=== PATIENT | male | born 1955 | race Caucasian/White ===

== ENCOUNTER 2016-08-31 18:00 | Observation (INO) | payer OTHER ==
[~2016-08-31 18:00] MED LIST: ASPIRIN81 M1 PO; ATIVAN0.5 MG PO; BABY ASPIRIN81 MG; BL MAXEPA CAPSU1 CAP PO; CHANTIX1 MG PO; DEPAKOTE ER500 M1 PO; FISH OIL 1,0001 CA PO; FOLIC ACID1 M1 PO; HALDOL5 MG/TAB PO; LIPITOR20 MG PO; LISINOPRIL10 MG; MAALOX ADVANCE355 M1 PO; MILK OF MA400 MG/5 M PO; MOTRIN400 MG PO; MULTIVITAMINS1 EAC7 PO; NEXIUM40 M1 PO; NEXIUM40 MG; NO HOME MEDS; NORVASC10 M1 PO; NORVASC10 MG PO; PLAVIX75 MG; SIMVASTATIN40 MG PO; TOPROL XL100 MG; TOPROL XL100 MG PO; TYLENOL325 M1 PO; VITAMIN B-1100 M3 PO; ZOCOR40 MG; ZOCOR40 MG PO
[2016-08-31 18:41] LABS: BASO % 0.3 % (0-2); HCT-HEMATOCRIT 34.5 % (36.0-53.5); IMMATURE GRANULOCYTES ABSOLUTE 0.02 tho/cmm (0-0.03); IMMATURE GRANULOCYTES PERCENT 0.3 % (0-0.3); LYMPH % 15.6 % (20-45); LYMPH ABSOLUTE COUNT 1.1 tho/cmm (0.8-4.5); MCH (MEAN CORPUSCULAR HGB) 32.4 pg (28.0-32.0); MCHC MEAN CORPUSCULAR HGB CONC 34.8 % (32.0-36.0); MCV (MEAN CELL VOLUME) 93.2 fl (82.0-96.0); MEAN PLATELET VOLUME 9.7 cmc (9.4-12.4); MONO % 8.2 % (0-12); MONOCYTE ABSOLUTE COUNT 0.6 tho/cmm (0.0-1.2); NEUTROPHIL ABSOLUTE COUNT 5.2 tho/cmm (1.6-8.0); NEUTROPHIL-AUTOMATED 5.2 tho/cmm (1.6-8.0); NEUTROPHILS % 75.6 % (40-80); PLATELET COUNT 155 tho/cmm (150-450); RED CELL DISTRIBUTION WIDTH 13.6 % (12.4-16.4); WHITE BLOOD COUNT 6.8 tho/cmm (4.0-10.0)
[2016-08-31] MEDS ORDERED: MELOXICAM15 M1 PO (18:50)
[2016-08-31] MEDS ORDERED: LIPITOR40 M1 PO (18:55)
[2016-08-31] MEDS ORDERED: PAXIL20 M1 PO (18:55)
[2016-08-31] MEDS ORDERED: NORVASC10 M2 PO (18:55)
[2016-08-31] MEDS ORDERED: TOPROL XL100 M1 PO (18:55)
[2016-08-31 19:10] LABS: ALB/GLOB RATIO 0.8 (0.8-2.0); ALBUMIN 3.3 g/dl (3.5-5.0); ALCOHOL (ETOH) <10 mg/dl (<10); ALKALINE PHOSPHATASE 61 U/L (33-138); ALT/SGPT 58 U/L (12-78); ANION GAP 15 mmol/L (0-20); AST/SGOT 61 U/L (10-40); BILIRUBIN,TOTAL 0.6 mg/dl (0.0-1.5); BLOOD UREA NITROGEN 13 mg/dl (6-24); CALCIUM 8.6 mg/dl (8.5-10.5); CARBON DIOXIDE-VENOUS 24 mmol/L (22-32); CHLORIDE 102 mmol/l (96-110); CREATININE 0.98 mg/dl (0.60-1.30); GLUCOSE 155 mg/dL (70-110); POTASSIUM 3.3 mmol/L (3.7-5.1); SODIUM 138 mmol/L (135-145); eGFR VALUE FOR BLACK >90 mL/Min
[2016-08-31 19:40] LABS: URINE LEUKOCYTE ESTERASE NEGATIVE (NEG); URINE PROTEIN MODERATE (NEG)
[2016-08-31 19:42] LABS: URINE APPEARANCE CLEAR; URINE BILIRUBIN NEGATIVE (NEG); URINE BLOOD SMALL (NEG); URINE COLOR YELLOW; URINE GLUCOSE (UA) SMALL (NEG); URINE KETONE MODERATE (NEG); URINE NITRITE NEGATIVE (NEG)
[2016-08-31 19:48] LABS: URINE EPITHELIAL CELLS RARE /[HPF] (0-10); URINE RBC 0-1 /[HPF] (0-5); URINE WBC RARE /[HPF] (0-5)
[2016-08-31 20:53] LABS: PROTHROMBIN TIME 11.6 SECONDS (9.0-13.6)
[2016-08-31 20:59] LABS: AMYLASE 64 U/L (20-90); LIPASE 111 U/L (73-393); MAGNESIUM 1.2 mg/dl (1.8-2.6)
[2016-08-31 21:00] LABS: ACETAMINOPHEN LEVEL <2.1 ug/ml (10-30); SALICYLATE <2.8 mg/dl (2.8-20)
[2016-09-01 02:17] LABS: BASO % 0.4 % (0-2); EOS % 0.2 % (0-7); HCT-HEMATOCRIT 35.2 % (36.0-53.5); HGB-HEMOGLOBIN 12.2 gm/dl (13.5-17.0); IMMATURE GRANULOCYTES ABSOLUTE 0.01 tho/cmm (0-0.03); IMMATURE GRANULOCYTES PERCENT 0.1 % (0-0.3); LYMPH % 29.3 % (20-45); LYMPH ABSOLUTE COUNT 2.5 tho/cmm (0.8-4.5); MCH (MEAN CORPUSCULAR HGB) 32.4 pg (28.0-32.0); MCHC MEAN CORPUSCULAR HGB CONC 34.7 % (32.0-36.0); MCV (MEAN CELL VOLUME) 93.4 fl (82.0-96.0); MEAN PLATELET VOLUME 9.8 cmc (9.4-12.4); NEUTROPHIL ABSOLUTE COUNT 4.9 tho/cmm (1.6-8.0); NEUTROPHIL-AUTOMATED 4.9 tho/cmm (1.6-8.0); PLATELET COUNT 142 tho/cmm (150-450); RED BLOOD COUNT 3.77 mil/cmm (4.40-5.70); RED CELL DISTRIBUTION WIDTH 13.8 % (12.4-16.4); WHITE BLOOD COUNT 8.4 tho/cmm (4.0-10.0)
[2016-09-01 02:32] LABS: ANION GAP 12 mmol/L (0-20); BLOOD UREA NITROGEN 10 mg/dl (6-24); CALCIUM 8.6 mg/dl (8.5-10.5); CARBON DIOXIDE-VENOUS 28 mmol/L (22-32); CHLORIDE 104 mmol/l (96-110); CHOLESTEROL 157 mg/dl (120-200); CREATININE 0.82 mg/dl (0.60-1.30); GLUCOSE 109 mg/dL (70-110); HDL CHOLESTEROL 86 mg/dl (40-60); LDL CHOLESTEROL 51 mg/dl (0-99); POTASSIUM 3.5 mmol/L (3.7-5.1); SODIUM 140 mmol/L (135-145); TRIGLYCERIDES 101 mg/dl (<149); VLDL 20 mg/dl (0-30); eGFR VALUE FOR BLACK >90 mL/Min
[2016-11-16] MEDS ORDERED: AMITRIPTYLINE H25 M1 PO (14:52)
[2016-11-16] MEDS ORDERED: TAMSULOSIN HCL0.4 M1 PO (14:53)
== END 2016-09-01 11:05 ==
LOC: EDMED 18:00 → EMR2 20:28 → 5WD 21:43
PROVIDERS: Emergency Medicine; Internal Medicine; Registered Nurse; ADMIT Hospitalist
DX: F10.239 Alcohol dependence with withdrawal, unspecified (principal); F41.9 Anxiety disorder, unspecified; E78.5 Hyperlipidemia, unspecified; F32.9 Major depressive disorder, single episode, unspecified; I25.2 Old myocardial infarction; G89.29 Other chronic pain; E87.6 Hypokalemia; I25.10 Atherosclerotic heart disease of native coronary artery without angina pectoris; Z79.82 Long term (current) use of aspirin; Z79.899 Other long term (current) drug therapy; Z98.890 Other specified postprocedural states; Z90.49 Acquired absence of other specified parts of digestive tract
CPT/HCPCS: G0378; G0480; J2060; J3475; J7030